=== PATIENT | female | born 1945 | race Caucasian/White ===

== ENCOUNTER 2017-08-05 17:19 | Emergency (ER) | payer OTHER ==
[2017-08-05 17:24] VITALS: RESP 18
--- NOTE | 2017-08-05 17:25 | EDPHY ---
H & P Stated Complaint: Recent dx/tx PNA;still having dyspnea,cough and yellow mucous Time Seen by Provider: 08/05/17 17:25 HPI/ROS: CHIEF COMPLAINT: Recurrent productive cough HISTORY OF PRESENT ILLNESS: The patient presents the ED with a recurrent productive cough for the past several days. She was diagnosed with a pneumonia 10 days ago and completed a 5 day course of antibiotics. She believes it was azithromycin. She felt better however over the past several days had recurrence symptoms prompting her visit to the emergency department. The patient does have a history of CABG 5 years ago but denies any exertional chest pain or shortness of breath. The patient denies any asymmetric calf pain or swelling. She denies abdominal pain, nausea, vomiting or diarrhea. She has not been using an inhaler. REVIEW OF SYSTEMS: A comprehensive 10 point review of systems is otherwise negative aside from elements mentioned in the history of present illness. Source: Patient Exam Limitations: No limitations - Personal History Current Tetanus Diphtheria and Acellular Pertussis (TDAP): Yes Tetanus Vaccine Date: 2012 - Medical/Surgical History Hx Asthma: No Hx Chronic Respiratory Disease: No Hx Diabetes: No Hx Cardiac Disease: Yes Hx Renal Disease: No Hx Cirrhosis: No Hx Alcoholism: No Hx HIV/AIDS: No Hx Splenectomy or Spleen Trauma: No Other PMH: medical: Triple bypass. surgery: tonsillectomy, closed head injury, KNEE SURGERY - Social History Smoking Status: Never smoked - Physical Exam Exam: General Appearance: Alert, no distress Eyes: Pupils equal and round no pallor or injection ENT, Mouth: Mucous membranes moist Respiratory: Rhonchorous breath sounds right lung base Cardiovascular: Regular rate and rhythm Gastrointestinal: Abdomen is soft and nontender, no masses, bowel sounds normal Neurological: A&O, normal motor function, normal sensory exam, normal cranial nerves Skin: Warm and dry, no rashes Musculoskeletal: Neck is supple nontender Extremities: symmetrical, full range of motion Constitutional: Initial Vital Signs Temperature (C) 37 C 08/05/17 17:20 Heart Rate 78 08/05/17 17:20 Respiratory Rate 18 08/05/17 17:20 Blood Pressure 152/58 H 08/05/17 17:20 O2 Sat (%) 96 08/05/17 17:20 O2 Delivery Mode Room Air Allergies/Adverse Reactions: hydromorphone HCl [From Dilaudid] Allergy (Mild, Verified 08/05/17 17:20) Vomiting amoxicillin [Amoxicillin] Allergy (Verified 08/05/17 17:20) Home Medications: Medication Instructions Recorded Aspirin EC [Aspirin EC 81 mg (*)] 81 mg PO DAILY 08/05/17 Levothyroxine [Synthroid 100 mcg 100 mcg PO DAILY06 08/05/17 (*)] Medical Decision Making - Diagnostics EKG Interpretation: EKG: Complete interpretation has been separately recorded in the [facility] archive. Summary impression: Sinus rhythm, rate 66, no ischemic changes noted Imaging Results: Chest x-ray PA lateral: Images reviewed by myself, negative for focal pneumonia per my interpretation. Formal interpretation by Radiology pending. ED Course/Re-evaluation: The patient presents to the ED with a history of a productive cough. The patient has recently completed a course of azithromycin. She was noted to be afebrile in not hypoxemic. Chest x-ray demonstrates no obvious infiltrate by my interpretation. The patient did receive a DuoNeb in the emergency department. I do feel the patient can manage her symptoms with Tessalon Perles, Mucinex and albuterol. I have advise the patient to return to the emergency department for fever, worsening dyspnea, worsening symptoms or other concerns. I did re-evaluate the patient at 6:00 p.m. and she is feeling better after a nebulized breathing treatment. I reviewed her chest x-ray findings in the ED. Differential Diagnosis: Differential diagnosis considered includes asthma, bronchitis, pneumonia Departure - Departure Disposition: Home, Routine, Self-Care Clinical Impression: Acute bronchitis Condition: Good Instructions: Acute Bronchitis (ED) Additional Instructions: 1. Your chest x-ray demonstrates no obvious pneumonia by my interpretation. 2. Please begin using albuterol inhaler up to every 2-4 hours as needed. 3. Please use Mucinex for management of your symptoms. 4. Tessalon Perles as prescribed. 5. Return to the ED for markedly worsening symptoms or other concerns. Referrals: GILMER VÁZQUEZ [Primary Care Provider] - As per Instructions
[2017-08-05] MEDS ORDERED: IPRATROPIUM/ALBUTEROL 3 ML DEYVIAL IH ONE (17:43)
--- NOTE | 2017-08-05 17:48 | CPEKG ---
Heart Rate: 66 RR Interval: 909 P-R Interval: 184 QRSD Interval: 106 QT Interval: 404 QTC Interval: 424 P [place]: 25 QRS [place]: 3 T Wave [place]: 30 EKG Severity - NORMAL ECG - EKG Impression: SINUS RHYTHM Electronically Signed By: Rick White 05-Aug-2017 18:04:13
[2017-08-05] MEDS ORDERED: ALBUTEROL INH PREPACK MDI TAKEHOME ONE (18:10)
[2017-08-05 18:49] VITALS: BP 144/52; PULSE 71; TEMP 98.6; O2SAT 95
== END 2017-08-05 18:58 | disposition home or self-care (01) ==
DX: J20.9 Acute bronchitis, unspecified (principal); Z79.82 Long term (current) use of aspirin

== ENCOUNTER 2017-10-09 10:44 | Observation (INO) | payer OTHER ==
--- NOTE | 2017-10-09 11:20 | CPEKG ---
Heart Rate: 85 RR Interval: 706 P-R Interval: 172 QRSD Interval: 96 QT Interval: 384 QTC Interval: 457 P [place]: 36 QRS [place]: 4 T Wave [place]: 50 EKG Severity - NORMAL ECG - EKG Impression: SINUS RHYTHM Electronically Signed By: Tara Rowley 09-Oct-2017 15:18:13
--- NOTE | 2017-10-09 11:39 | EDPHY ---
H & P Stated Complaint: SOB chest tightness x 1 day Time Seen by Provider: 10/09/17 11:39 HPI/ROS: CHIEF COMPLAINT: Short of breath, chest tightness HISTORY OF PRESENT ILLNESS: This is a 72-year-old female with history of coronary artery disease status post triple bypass grafting in the remote past ( she is unable to remember what year). She presents this morning after experiencing shortness of breath and extreme fatigue while gardening. She was on her knees, felt as if she could not breathe, and was so weak that she could not get up. Her had to help her up and she was unable to walk into the house unassisted because she felt so weak. She has had persistent substernal chest pressure since that time. There is no radiation of pain. She has not had nausea or diaphoresis. She does not currently feel short of breath. She has not taken an aspirin today, but usually takes 1 baby aspirin every night. She is not currently taking any medications. She has no known history of hypertension. REVIEW OF SYSTEMS: A ten point review of systems was performed and is negative with the exception of the items mentioned in the HPI. She reports chronic sinus problems with sinus drainage and resultant cough. No recent fever. Past medical history: 1. Coronary artery disease 2. Hypothyroid Past surgical history: CABG Social history: She lives with her . No tobacco use. 1 glass of wine daily. No illicit drugs. General Appearance: Alert. Vital signs reviewed. Blood pressure at triage 166 /83. Heart rate 76. Room air oxygen saturation 97%. Eyes: Pupils equal and round, no conjunctival injection, no discharge. Anicteric. ENT, Mouth: Mucous membranes are moist, no oropharyngeal erythema or edema. Neck: No lymphadenopathy, supple. Trachea midline. No jugular venous distension. Respiratory: Lungs are clear to auscultation; no wheezes, rales, or rhonchi. Cardiovascular: Regular rate and rhythm; no murmur, rub, or gallop. Gastrointestinal: Abdomen is soft and nontender, no masses or organomegaly, bowel sounds normal. Skin: Warm and dry, no rashes on exposed skin, normal color. Back: Nontender to palpation over the thoracolumbar spine. No CVAT. Extremities: No lower extremity edema, no calf tenderness or swelling. Neurological: Alert and oriented. Moving all four extremities easily and equally. Psychiatric: Normal affect. - Personal History Tetanus Vaccine Date: 2012 - Medical/Surgical History Hx Asthma: No Hx Chronic Respiratory Disease: No Hx Diabetes: No Hx Cardiac Disease: Yes Hx Renal Disease: No Hx Cirrhosis: No Hx Alcoholism: No Hx HIV/AIDS: No Hx Splenectomy or Spleen Trauma: No Other PMH: medical: Triple bypass. surgery: tonsillectomy, closed head injury, KNEE SURGERY - Social History Smoking Status: Never smoked Constitutional: Initial Vital Signs Temperature (C) 36.5 C 10/09/17 11:03 Heart Rate 76 10/09/17 11:03 Respiratory Rate 18 10/09/17 11:03 Blood Pressure 166/83 H 10/09/17 11:03 O2 Sat (%) 97 10/09/17 11:03 O2 Delivery Mode Room Air Allergies/Adverse Reactions: hydromorphone HCl [From Dilaudid] Allergy (Mild, Verified 08/05/17 17:20) Vomiting amoxicillin [Amoxicillin] Allergy (Verified 10/09/17 14:03) Rash Home Medications: Medication Instructions Recorded Aspirin EC [Aspirin EC 81 mg (*)] 81 mg PO HS 08/05/17 Levothyroxine [Synthroid 100 mcg 100 mcg PO DAILY06 08/05/17 (*)] Medical Decision Making - Diagnostics EKG Interpretation: 12 lead EKG is interpreted in Trace master View by emergency department physician. 2nd EKG was also interpreted by me and it is centrally unchanged compared to the 1st. Both of these are compared to heart tracing obtained in July of 2017. She has some mild ST elevation in V2 but no acute ischemic changes. Imaging Results: Imaging Impressions Chest X-Ray 10/09/17 12:22 Impression: No acute pulmonary disease. ED Course/Re-evaluation: 72-year-old with coronary artery disease, status post triple bypass at some point in the past. She has had chest pressure and extreme weakness that began earlier this morning. Cardiac etiology is of concern. Her initial troponin was in the indeterminate range. She received nitroglycerin with relief of her chest pressure. A repeat troponin was slightly less but still mildly elevated. Repeat EKG unchanged. She was evaluated by the hospitalist service and also by the cardiology service. The plan is for her to go to the catheterization lab. She is noted to be hypertensive in the emergency department. She is not aware of history of hypertension, but has not had her blood pressure checked recently. I reviewed her EKGs x2, chest x-ray, and labs. Differential Diagnosis: Chest pain including but not limited to myocardial ischemia, pulmonary embolus, chest wall pain, pleural inflammation and pulmonary infectious causes. - Data Points Laboratory Results: Laboratory Results 10/09/17 11:15 10/09/17 11:15 10/09/17 10/09/17 10/09/17 11:15 11:15 11:15 WBC 8.65 10^3/uL 10^3/uL (3.80-9.50) RBC 4.85 10^6/uL 10^6/uL (4.18-5.33) Hgb 15.6 g/dL g/dL (12.6-16.3) Hct 46.2 % % (38.0-47.0) MCV 95.3 fL fL (81.5-99.8) MCH 32.2 pg pg (27.9-34.1) MCHC 33.8 g/dL g/dL (32.4-36.7) RDW 13.1 % % (11.5-15.2) Plt Count 214 10^3/uL 10^3/uL (150-400) MPV 10.3 fL fL (8.7-11.7) Neut % (Auto) 54.9 % % (39.3-74.2) Lymph % (Auto) 37.1 % % (15.0-45.0) Burt % (Auto) 5.8 % % (4.5-13.0) Eos % (Auto) 1.6 % % (0.6-7.6) Baso % (Auto) 0.3 % % (0.3-1.7) Nucleat RBC Rel Count 0.0 % % (0.0-0.2) Absolute Neuts (auto) 4.74 10^3/uL 10^3/uL (1.70-6.50) Absolute Lymphs (auto) 3.21 10^3/uL H 10^3/uL (1.00-3.00) Absolute Monos (auto) 0.50 10^3/uL 10^3/uL (0.30-0.80) Absolute Eos (auto) 0.14 10^3/uL 10^3/uL (0.03-0.40) Absolute Basos (auto) 0.03 10^3/uL 10^3/uL (0.02-0.10) Absolute Nucleated RBC 0.00 10^3/uL 10^3/uL (0-0.01) Immature Gran % 0.3 % % (0.0-1.1) Immature Gran # 0.03 10^3/uL 10^3/uL (0.00-0.10) D-Dimer 0.33 ug/mLFEU ug/mLFEU (0.00-0.50) Sodium 144 mEq/L mEq/L (135-145) Potassium 3.7 mEq/L mEq/L (3.5-5.2) Chloride 109 mEq/L mEq/L (97-110) Carbon Dioxide 25 mEq/l mEq/l (22-31) Anion Gap 10 mEq/L mEq/L (8-16) BUN 13 mg/dL mg/dL (7-23) Creatinine 0.7 mg/dL mg/dL (0.6-1.0) Estimated GFR > 60 Glucose 140 mg/dL H mg/dL (70-100) Calcium 9.8 mg/dL mg/dL (8.5-10.4) Troponin I 0.046 ng/mL H ng/mL (0.000-0.034) Medications Given: Discontinued Medications Aspirin (Aspirin) 324 mg PO EDNOW ONE Stop: 10/09/17 12:23 Last Admin: 10/09/17 12:29 Dose: 324 mg Clopidogrel Bisulfate (Plavix) 600 mg PO ONCE ONE Stop: 10/09/17 14:42 Last Admin: 10/09/17 14:44 Dose: 600 mg Nitroglycerin (Nitrostat) 0.4 mg SL EDNOW ONE Stop: 10/09/17 13:14 Last Admin: 10/09/17 13:15 Dose: 0.4 mg Departure - Departure Disposition: To OP Cath/Surgery Clinical Impression: Chest pain Qualifiers: Chest pain type: precordial pain Qualified Code(s): R07.2 - Precordial pain Hypertension Qualifiers: Hypertension type: unspecified Qualified Code(s): I10 - Essential (primary) hypertension Condition: Fair
[2017-10-09] MEDS ORDERED: ASPIRIN 81 MG CHEWABLE TAB PO ONE (12:22)
[2017-10-09 12:26] LABS: PLATELET COUNT 214 10^3/uL (150-400)
[2017-10-09] MEDS ORDERED: NITROGLYCERIN 0.4 MG BTL SL ONE (13:13)
--- NOTE | 2017-10-09 13:25 | CPEKG ---
Heart Rate: 82 RR Interval: 732 P-R Interval: 184 QRSD Interval: 98 QT Interval: 420 QTC Interval: 491 P [place]: 34 QRS [place]: -1 T Wave [place]: 58 EKG Severity - ABNORMAL ECG - EKG Impression: SINUS RHYTHM EKG Impression: CONSIDER ANTEROSEPTAL INFARCT EKG Impression: BORDERLINE PROLONGED QT INTERVAL Electronically Signed By: Tara Rowley 09-Oct-2017 15:18:03
[2017-10-09] MEDS ORDERED: ONDANSETRON DISINTEGRATING 4 MG TAB PO PRN (14:21)
[2017-10-09] MEDS ORDERED: ACETAMINOPHEN 325 MG TAB PO PRN (14:21)
[2017-10-09] MEDS ORDERED: ONDANSETRON 4 MG/2 ML VIAL IVP PRN (14:21)
[2017-10-09] MEDS ORDERED: CLOPIDOGREL BISULFATE 75 MG TAB PO ONE (14:41)
[2017-10-09] MEDS ORDERED: CLOPIDOGREL BISULFATE 75 MG TAB ONE (14:42)
[2017-10-09] MEDS ORDERED: LIDOCAINE 1% 300 MG/30 ML SDV ONE (14:45)
[2017-10-09] MEDS ORDERED: fentaNYL 100 MCG/2 ML INJ ONE (14:46)
[2017-10-09] MEDS ORDERED: IOPAMIDOL (ISOVUE-370) 150 ML BTL IV ONE (14:46)
[2017-10-09] MEDS ORDERED: MIDAZOLAM 2 MG/2 ML VIAL ONE (14:46)
--- NOTE | 2017-10-09 14:50 | PDHPUP ---
History & Physical Update H&P update statement: This history and physical update is based on an assessment of the patient which was completed after admission or registration (within 24 hours), but prior to the surgery/procedure. H&P update: H&P reviewed & patient examined, no change in patient's condition since H&P completed
--- NOTE | 2017-10-09 14:50 | PDPROPOC ---
Sedation Plan of Care Sedation Plan of Care: mental status noted, patient educated of risks, benefits , alternatives, patient can tolerate sedation ASA Classification: ASA 2 Planned drugs: fentanyl, midazolam Mallampati Score: Class 2 Mallampati Reference Image: Patient passed 3-3-2 rule?: Yes
--- NOTE | 2017-10-09 14:56 | GHP ---
[f rep st] HISTORY AND PHYSICAL DATE OF ADMISSION: 10/09/2017 CHIEF COMPLAINT: Chest pain, shortness of breath. HISTORY OF PRESENT ILLNESS: This is a 72-year-old female with a history of coronary artery disease s tatus post 3 vessel CABG, who presents with new onset dyspnea on exertion. The patient reports being in her normal state of health. Reports since her CABG the patient has been symptom free without rat e limiting chest pain or shortness of breath. Reports that she did make significant changes to her d ietary intake and lifestyle. Post CABG is now vegan, quite active, swimming, walking and interacting with her grandchildren. The patient has been feeling quite well until this morning when she was [place] her dog on a route that she typically walks more than once a day. The patient headed up a modes t incline and developed severe dyspnea on exertion that nearly kept her from being able to get to the top of the hill. When she got to the top into the restaurant for which she was meeting her , developed severe substernal chest pressure that limited her respiration. She sat, rested, and the p ain did ultimately resolve. Patient then returned home and was walking up to 4 to 5 steps to get to her front door when again dyspnea on exertion and substernal chest pressure recurred. At that point the patient decided to present for evaluation in the emergency department. In the ED patient reports recurrent substernal chest pressure while lying in the bed. It did, however, respond to nitroglycer in. At the time of my interview she is chest pain free, is not experiencing shortness of breath. Th e patient and denied any associated diaphoresis, dizziness, nausea, vomiting. No previous ep isodes prior to arrival to the emergency department. Patient does report post CABG that she took the recommended cardiac medications for approximately 1 year, then discontinued all medications and has been taking only herbal supplements since her bypass. PAST MEDICAL HISTORY: Coronary artery disease status post 3 vessel bypass. SOCIAL HISTORY: Negative for tobacco. Positive glass of wine in the evenings. No illicit drugs or marijuana. FAMILY HISTORY: Positive for strokes in her father and heart disease in her mother. REVIEW OF SYSTEMS: A 10-point review of systems is negative with the exception of that reported in t he HPI. PHYSICAL EXAMINATION: VITAL SIGNS: Blood pressure is 146/72, heart rate 74, respiratory rate 16, 96 % on room air, 36.5. GENERAL: This is a pleasant middle-aged female in no acute distress. HEENT: Notable for moist mucous membranes. Eye exam is negative for any icterus. CARDIAC: Regular rate and rhythm. A quiet systolic murmur is heard best at the left upper sternal b order. PULMONARY: Clear to auscultation bilaterally. GASTROINTESTINAL: Positive bowel sounds. ABDOMEN: Soft and nontender. MUSCULOSKELETAL: Negative for any lower extremity edema. SKIN: Negative for any rashes. NEUROLOGIC: The patient is alert and oriented x3. PSYCHIATRIC: She is pleasant and cooperative on interview and examination. DATA: Creatinine 0.7. Troponin 0.046. White count 8.6, hematocrit 46.2. EKG, which I personally r eviewed and interpreted, shows sinus rhythm, normal access with mild ST elevation in leads V1, V2. C hest x-ray which I personally reviewed and interpreted, shows no acute findings. ASSESSMENT AND PLAN: This is a 72-year-old female with known coronary disease, presenting with dyspn ea and chest pressure. 1. Acute chest pain, certainly concerning with patient's history, having not taken any cardiac medic ations in many years. Acute onset and exertional component of her symptoms. Troponin is indetermina te at presentation. EKG near previous baseline although has mildly lifted ST segments which could be J-point elevation. Admit the patient to the PCU. We will consult Cardiology as I suspect patient w ould be most appropriate for cardiac catheterization rather than other stress testing. Will discuss with them the initiation of heparin or not based on their evaluation. The patient has received an as pirin in the emergency department. We will continue this. 2. Elevated blood pressure. Difficult for me to ascertain if this is chronic for her or not as she has not sought medical care in quite some time. We will follow her pressures closely and discuss low -dose beta blockade with Cardiology. 3. Prophylaxis. Will hold until decisions related to anticoagulation overnight are made. 4. Diet n.p.o. until seen by Cardiology. DISPOSITION: I expect in less than 2 midnights if the patient's cardiac workup is negative. I have discussed the case with Cardiology. They will consult and make recommendations related to the patien t's chest pain and following workup. /[id number]/MODL
--- NOTE | 2017-10-09 15:22 | GCON ---
[f rep st] CONSULTATION CARDIOLOGY CONSULT CHIEF COMPLAINT: Chest pain, shortness of breath. HISTORY OF PRESENT ILLNESS: This is a 72-year-old female with history of bypass surgery a number of years ago, who presented to [facility] with complaints of shortness breath, chest tight ness earlier today while walking her dog. The patient has not followed with a bread icer since her bypass surgery. She has historically refused to take any prescription medications and has been taki ng naturopathic medications. She indicates today she was walking her dog and had a discomfort and ex treme fatigue while performing this, and she decided to come to the emergency room for further evalua tion. In the emergency room, she did not have any new dynamic EKG changes. However, she did have a mild troponin elevation. Currently, patient is resting quietly. Denies any active discomfort. Garay alyssa, her blood pressure is elevated to 160/70, the heart rate is 72. PAST MEDICAL HISTORY: Seen for CABG, thyroid issues. HOME MEDICATIONS: Patient denies taking any prescription medications currently. SOCIAL HISTORY: Denies any smoking, drinking. She is a vegetarian. FAMILY HISTORY: Significant for coronary artery disease. REVIEW OF SYSTEMS: Patient denies any visual changes. No headache. No neck pain. No jaw pain. No abdominal pain. No chest pain. No shortness of breath currently. No lower extremity pain. No alycia rologic deficits. PHYSICAL EXAMINATION: VITAL SIGNS: The patient is afebrile 98.2, blood pressure 160/70 with a heart rate of 72, respiratory rate 12, satting 95% on room air. HEENT: Pupils equal, round to light and accommodation. Extraocular movements intact. CARDIOVASCULAR: Regular rate and rhythm. S1, S2. SUKUMAR NGS: Clear to auscultation bilaterally. ABDOMEN: Soft, nontender. No guarding. EXTREMITIES: No clubbing, cyanosis, no edema. NEUROLOGIC: Patient is alert and oriented x3. LABORATORY VALUES: Currently show a creatinine 0.7, troponin of 0.04. D-dimer 0.3. Hemoglobin 15.6 , hematocrit 46.2, platelet count 214, white count 8.6. ASSESSMENT/PLAN: Chest pain/shortness of breath. At this time, the patient has evidence of mildly e levated troponin levels as well as clinical symptoms consistent with an anginal equivalent. Given he r history of bypass surgery, I feel we should move forward with a left heart catheterization to defin e her anatomy. I have explained the risks/possible complications of procedure including bleeding, in fection, stroke, and possible and she would like to proceed. The patient has agreed that if th ere is a lesion amenable to percutaneous coronary intervention, that she would take the aspirin and P lavix as prescribed. /[id number]/MODL
--- NOTE | 2017-10-09 16:17 | CPIP ---
[f rep st] INVASIVE CARDIAC PROCEDURE DATE OF PROCEDURE: 10/09/2017 INDICATION FOR PROCEDURE: Non-STEMI. PROCEDURE PERFORMED: 1. Nonselective right groin sheathogram. 2. Bilateral selective coronary angiography. 3. Left heart catheterization. 4. Left ventriculogram. 5. Saphenous vein angiography to ramus intermedius. 6. Saphenous vein angiography to obtuse marginal artery. 7. Left internal mammary artery angiography to left anterior descending. HISTORY: Briefly, this is a 72-year-old female with history of CABG. The patient had chest pain ear ly this morning, which then she came to the emergency room to find that she had a mildly elevated tro ponin level. ECG showed no acute dynamic changes. However, given her symptoms and troponin level, shay jennings decided to proceed with left heart catheterization. DESCRIPTION OF PROCEDURE: After informed consent, the patient was brought to [facility] where the right ronald in was prepped and draped in sterile fashion. Using local lidocaine, a short 6-Mosotho sheath was adv anced in the right femoral artery, verified angiographically. Through a 6-Mosotho sheath, a JL4 kevin ter was advanced. The left main was short but patent. The left circumflex artery gave off a large m arginal 1 artery distally. There was tubular 60% to 70% disease in its mid portion. Of note, there was widely patent competitive flow from a graft to the marginal artery. The LAD proximally had 70% t o 80% tubular disease, and there appeared to be a ramus intermedius/high diagonal artery that had com petitive flow distally as well as there was competitive flow to the LAD as well. After these images were obtained, the JL4 catheter was removed and a JR4 catheter was advanced to the right coronary art tio. Images of the right coronary artery revealed normal prox, mid, distal RCA. There was some noti ceable spasm of the vessel with the catheter introduction, however, no high-grade lesion was noted. At this time, the JR4 catheter was pulled back into the 1st graft, which was a saphenous vein graft t o the ramus intermedius. This was widely patent. The distal ramus intermedius was widely patent. T he graft was then pulled back and placed into a 2nd graft, which was the graft to the distal marginal 1 artery, which was widely patent with good distal flow to the vessel. The catheter was then pulled back into the left subclavian artery and exchanged out for a GIRARD catheter. Angiography of the left GIRARD showed widely patent GIRARD anastomosing to the mid LAD. Distal LAD appeared to be widely patent . After obtaining this imaging, the pigtail catheter was advanced to the left ventricle. EDP is 22 mmHg. Left ventriculogram in the RADFORD position showed EF of 65% with what appeared to be mild LVH. T here was no pullback gradient between the LV and the aorta. Pigtail catheter was removed over the 0. 035 wire. Right groin was closed using 6-Mosotho Angio-Seal. The patient tolerated the procedure wel l with no complications. IMPRESSION: 1. Severe [place] coronary artery disease, namely in the form of the proximal left anterior descendin g and mid left circumflex artery and proximal ramus intermedius disease. 2. Patent 3/3 bypass grafts. 3. Mild plaque disease in the right coronary artery. 4. Normal ejection fraction. PLAN: The patient's symptoms may be due to underlying undiagnosed hypertension as she was somewhat h ypertensive the last 12 hours in the emergency room. We will continue to follow closely overnight an d institute blood pressure medications if needed. No intervention for her coronary disease is needed at this time. /[id number]/MODL
[2017-10-09 19:42] LABS: INR 1.01 (0.83-1.16); PROTIME(PATIENT) 13.5 SEC (12.0-15.0)
[2017-10-09] MEDS: NS 1,000 ML IV SCH (20:21)
[2017-10-10 03:40] VITALS: BP 156/70
[2017-10-10] MEDS: NS 1,000 ML IV SCH (06:04)
--- NOTE | 2017-10-10 06:29 | PDCARPN ---
Cardiology Progress Note Chief Complaint: fatigue/CP Assessment/Plan: Assessment: CP/fatigue/NSTEMI CABG with patent grafts HTN Plan: 10/10/17 06:27 Patient still has elevated BP--would start losartan 25 mg po qd Ambulate this AM OK to d/c home today if BP controlled f/u next week in office Subjective: c/o fatigue Reviewed/Discussed With: multidisciplinary team Time Spent With Patient: 25 min Objective: Vital Signs (8 Hrs) Temp Pulse Resp BP Pulse Ox 10/10/17 03:40 36.4 C 66 18 156/70 H 99 10/09/17 22:46 36.3 C 66 15 155/65 H 97 Intake/Output (24 Hrs) 10/09/17 10/10/17 10/11/17 05:59 05:59 05:59 Intake Total 1505 Output Total 750 Balance 755 Intake: Oral (ml) 200 IV Intake (ml) 350 IV Infused (ml) 955 Ns 1,000 ml @ 100 mls/hr 955 IV CONT [place] Rx#: [id number] Output: Urine (ml) 750 Bedpan 400 Toilet 350 Other: Weight 70.307 kg Intake Quantity Yes Sufficient Number of Voids Toilet 1 Number of Stools Toilet 1 Result Diagrams: 10/09/17 11:15 10/09/17 11:15 Cardiac Labs: Cardiac Lab Results (72 Hrs) 10/09/17 10/09/17 19:20 13:45 Troponin I 0.044 H 0.039 H - Physical Exam Constitutional: healthy appearing Eyes: PERRL Ears, Nose, Mouth, Throat: moist mucous membranes Cardiovascular: regular rate and rhythm Peripheral Pulses: 1+: femoral (R), femoral (L) Respiratory: clear to auscultate bilat Gastrointestinal: no tenderness Genitourinary: no suprapubic tenderness Skin: no rashes Musculoskeletal: no muscular tenderness Neurologic: AAOx3 Psychiatric: cooperative ICD10 Worksheet Patient Problems: Problems Problem Status Onset Chest pain Acute Hypertension Acute
[2017-10-10] MEDS: LOSARTAN POTASSIUM 25 MG TAB PO SCH ×2 (06:43→07:36)
--- NOTE | 2017-10-10 08:56 | ECHO ---
[email or web address] [address] [address] Main: [phone] Fax: Transthoracic Echocardiogram Name: MATTHIAS THIBODEAUX MR#: [id number] Study Date: 10/10/2017 Study Time: 07:40 AM Date of : 1945 Age: 72 year(s) Height: 162.6 cm (64 in.) Weight: 70.31 kg (155 lb.) BSA: 1.76 m2 Gender: Female Examination: Echo Indication: Hypertension, Hx of CABG Image Quality: Contrast: Requested by: Wilfredo Pham BP: 156 mmHg/70 mmHg Heart Rate: Rhythm: Indication: Hypertension, Hx of CABG Procedure Staff Digital Strategist: Tereso Salazar RDCS Reading Physician: Wilfredo Pham MD Requesting Provider: Conclusions: Normal global systolic LV function. The ejection fraction is visually estimated to be 65 %. Mild mitral valve leaflet calcification is present. Trivial to mild mitral regurgitation. Trivial aortic valve regurgitation. Measurements: Chambers Valvular Assessment AV/MV Valvular Assessment TV/PV Normal Normal Normal Name Value Range Name Value Range Name Value Range Ao Marqutia (MM): 3.0 cm (2.2 cm-3.7 AV Vmax: 1.37 m/s (1 m/s-1.7 TR Vmax: 2.25 mm/s ( - ) cm) m/s) TR PGmax: 20 mmHg ( - ) Visual EF: 65 % AV maxP mmHg ( - ) syst. PAP: 25 mmHg ( - ) LVOT Vmax: 1.10 m/s (0.7 m/s-1.1 PV Vmax: 0.80 m/s (0.6 m/s-0.9 m/s) m/s) MV E Vmax: 1.05 m/s ( - ) PV PGmax: 3 mmHg ( - ) MV A Vmax: 1.23 m/s ( - ) MV E/A: 0.85 ( - ) Continued Measurements: Chambers Valvular Assessment AV/MV Valvular Assessment TV/PV Name Value Name Value Name Value LADs Lon.2 cm MV E' Septal: 0.05 m/s CVP (est.): 5 mmHg LA Area: 19.9 cm2 MV E/E' Septal: 21.60 LA Volume: 57 ml MV E/E' Lateral: 32.60 LA Volume Index: 32.4 ml/m2 Patient: MATTHIAS THIBODEAUX Study Date: 10/10/2017 Page 1 of 2 07:40 AM Findings: Left Ventricle: Normal size left ventricle. No LV hypertrophy. Normal global systolic LV function. The ejection fraction is visually estimated to be 65 %. No regional wall motion abnormality. Diastolic dysfunction is present. . Right Ventricle: Normal size right ventricle. Left Atrium: The left atrium is mildly dilated. Right Atrium: The right atrium is normal in size. Mitral Valve: Mild mitral valve leaflet calcification is present. Trivial to mild mitral regurgitation. Aortic Valve: The aortic valve is tri-leaflet and functions normally. Trivial aortic valve regurgitation. Tricuspid Valve: The tricuspid valve is normal in appearance and function. The tricuspid valve appears normal. Pulmonic Valve: The pulmonic valve is normal in appearance and function. Aorta: The aorta is normal. Pericardium: No pericardial effusion. (No Signature Object) Patient: MATTHIAS THIBODEAUX Study Date: 10/10/2017 Page 2 of 2 07:40 AM [id number]
[2017-10-10] MEDS ORDERED: ASPIRIN 325 MG TAB PO SCH (09:00)
[2017-10-10] MEDS ORDERED: LEVOTHYROXINE 100 MCG TAB PO SCH (09:00)
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
--- NOTE | 2017-10-10 16:33 | GDS ---
[f rep st] DISCHARGE SUMMARY DISCHARGE DIAGNOSES: Include: 1. Acute chest pain. 2. Dyspnea on exertion. 3. Coronary artery disease, status post coronary artery bypass graft. 4. Hypothyroidism. HISTORY OF PRESENT ILLNESS: A 72-year-old female, status post a 3-vessel bypass approximately 5 year s ago, who presents with sudden onset of substernal chest pressure and dyspnea on exertion. For deta ils of patient's initial presentation, please see the history and physical dated 10/09/2017. CONSULTATIVE SERVICES: Include cardiology. PROCEDURES: On 10/09/2017, patient underwent cardiac catheterization that showed severe [place] disease with patent bypass grafts. On 10/10/2017, patient had a transthoracic echocardiogram vaishnavi t showed an ejection fraction of 65% without segmental wall motion abnormalities and no significant v alvular changes. HOSPITAL COURSE: By issue: 1. Chest pain: Patient presented with concerning history story and an indeterminate troponin withou t EKG changes. She was taken to the labor standards director and found to have patent bypass grafts and severe nativ e disease. She was monitored overnight for medication titration for uncontrolled hypertension. On t day of disposition, she is chest pain free and will continue taking aspirin daily and follow in e outpatient setting with Cardiology. 2. Uncontrolled hypertension: Patient did have fluctuations in her blood pressures during this stay . We have initiated low-dose losartan 25 mg daily. She will follow in the next 7-10 days with [facility] for her first postprocedural followup and blood pressure check. DISPOSITION MEDICATIONS: Please reference med rec printed on 10/10/2017. PENDING STUDIES: At the time of this dictation, none. TIME SPENT: I spent greater than 30 minutes in the planning and coordination of this discharge. /[id number]/MODL
[2017-10-11] MEDS ORDERED: ASPIRIN EC 81 MG TAB PO SCH (21:00)
== END 2017-10-10 12:19 | disposition home or self-care (01) ==
LOC: F2W 17:02
PROVIDERS: ADMIT Hospitalist; ATTEND Hospitalist
PROC: B2131ZZ Fluoroscopy of Multiple Coronary Artery Bypass Grafts using Low Osmolar Contrast (ICD-10-PCS; principal; 2017-10-09)
PROC: 4A023N7 Measurement of Cardiac Sampling and Pressure, Left Heart, Percutaneous Approach (ICD-10-PCS; principal; 2017-10-09)
PROC: B2151ZZ Fluoroscopy of Left Heart using Low Osmolar Contrast (ICD-10-PCS; principal; 2017-10-09)
DX: R07.9 Chest pain, unspecified (principal); R06.09 Other forms of dyspnea; I25.10 Atherosclerotic heart disease of native coronary artery without angina pectoris; I10 Essential (primary) hypertension; R79.89 Other specified abnormal findings of blood chemistry; E03.9 Hypothyroidism, unspecified; Z91.14 Patient's other noncompliance with medication regimen; Z79.82 Long term (current) use of aspirin; Z82.49 Family history of ischemic heart disease and other diseases of the circulatory system; Z95.1 Presence of aortocoronary bypass graft; Z88.0 Allergy status to penicillin
CPT/HCPCS: 71046; 93005; 93306; 93459; 99285; C1760; G0378; J1644; J2250; J3010; Q9967

== ENCOUNTER 2018-10-31 07:29 | Emergency (ER) | payer OTHER ==
[2018-10-31 07:37] VITALS: BP 154/95
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
[2018-10-31] MEDS ORDERED: PHENAZOPYRIDINE HCL 200 MG TAB PO ONE (07:58)
== END 2018-10-31 08:13 | disposition home or self-care (01) ==
DX: N30.01 Acute cystitis with hematuria (principal); I10 Essential (primary) hypertension; E78.5 Hyperlipidemia, unspecified; I25.10 Atherosclerotic heart disease of native coronary artery without angina pectoris; Z95.1 Presence of aortocoronary bypass graft; Z95.5 Presence of coronary angioplasty implant and graft

== ENCOUNTER 2018-11-11 12:12 | Emergency (ER) | payer OTHER | END 2018-11-11 13:36 | disposition home or self-care (01) ==

== ENCOUNTER 2018-11-20 16:57 | Emergency (ER) | payer OTHER | END 2018-11-20 19:40 | disposition home or self-care (01) ==